=== PATIENT | female | born 1975 | race Asian ===

== ENCOUNTER 2021-05-11 18:08 | Emergency (ER) | payer OTHER | END 2021-05-11 19:56 | disposition home or self-care (01) | LOC: CSHERS 18:08 | DX: J18.9 Pneumonia, unspecified organism (principal) | CPT/HCPCS: 71045 ==

== ENCOUNTER 2022-02-14 10:03 | Outpatient (CLI) | payer OTHER | END 2022-02-14 10:04 | disposition home or self-care (01) | LOC: CSHMAMMO 10:03 | PROVIDERS: ATTEND Nurse Practitioner Women's Health | DX: Z12.31 Encounter for screening mammogram for malignant neoplasm of breast (principal) | CPT/HCPCS: 77063; 77067 ==

== ENCOUNTER 2022-11-23 20:36 | Emergency (ER) | payer OTHER, SELFPAY ==
[2022-11-23] MEDS ORDERED: Ketorolac Tromethamine 30 MG/ML VIAL ONE (21:57)
[2022-11-23] MEDS ORDERED: Metoclopramide HCl 10 MG TAB ONE (21:57)
== END 2022-11-23 23:08 | disposition home or self-care (01) ==
LOC: CSHERS 20:36
DX: G43.909 Migraine, unspecified, not intractable, without status migrainosus (principal)
CPT/HCPCS: 70450; 96372; J1885